=== PATIENT | male | born 1960 | race Caucasian/White ===

== ENCOUNTER 2021-01-12 05:56 | Emergency (ER) | payer SELFPAY ==
[2021-01-12] MEDS ORDERED: CYCLOBENZAPRINE5 MG PO (09:03)
[2021-01-12] MEDS ORDERED: MOBIC15 MG PO (09:03)
== END 2021-01-12 09:20 | disposition home or self-care (01) ==
LOC: ER1 05:56
DX: M25.512 Pain in left shoulder (principal); E11.9 Type 2 diabetes mellitus without complications; I10 Essential (primary) hypertension; K21.9 Gastro-esophageal reflux disease without esophagitis; J44.9 Chronic obstructive pulmonary disease, unspecified; F17.200 Nicotine dependence, unspecified, uncomplicated; Z88.5 Allergy status to narcotic agent; Z79.4 Long term (current) use of insulin; Z79.899 Other long term (current) drug therapy
CPT/HCPCS: 73030; 99283

== ENCOUNTER → 2021-09-28 | Outpatient (CLI) | payer MEDICAID ==
[~2021-09-28] MED LIST: CLEOCIN HCL300 MG PO; CYCLOBENZAPRINE5 MG PO; MOBIC15 MG PO
[2021-09-28 11:59] LABS: BUN/CREATININE RATIO 16 (0-10)
[2021-09-29 10:18] LABS: CREATININE, URINE 34.2 mg/dL (Not Estab.)
== END ==
LOC: LAB 10:38
PROVIDERS: Family Medicine
DX: E11.40 Type 2 diabetes mellitus with diabetic neuropathy, unspecified (principal); R39.12 Poor urinary stream
CPT/HCPCS: 36415; 80053; 80061; 82043; 82570; 83036; 84153; 84443

== ENCOUNTER 2021-10-02 17:09 | Inpatient (IN) | payer MEDICARE, MEDICAID ==
[~2021-10-02] VITALS: Ht 188 cm; Wt 101.6 kg
[2021-10-02 18:30] LABS: HEMOGLOBIN 13.2 gm/dl (14.0-17.5); RED BLOOD COUNT 4.11 M/UL (4.20-5.50); WHITE BLOOD COUNT 19.3 K/UL (4.5-11.0)
[2021-10-02 18:45] LABS: BUN/CREATININE RATIO 13 (0-10)
[2021-10-03 03:37] LABS: HEMOGLOBIN 12.2 gm/dl (14.0-17.5); RED BLOOD COUNT 3.89 M/UL (4.20-5.50); WHITE BLOOD COUNT 15.5 K/UL (4.5-11.0)
[2021-10-03 04:01] LABS: BUN/CREATININE RATIO 13 (0-10)
[2021-10-03] MEDS ORDERED: CEPHALEXIN500 MG PO (09:45)
[2021-10-03] MEDS ORDERED: METOPROLOL TART25 MG PO (09:45)
[2021-10-03] MEDS ORDERED: JARDIANCE25 MG PO (09:46)
[2021-10-03] MEDS ORDERED: CLOPIDOGREL75 MG PO (09:46)
[2021-10-03] MEDS ORDERED: OMEPRAZOLE40 MG PO (09:46)
[2021-10-03] MEDS ORDERED: ATORVASTATIN CA80 MG PO (09:46)
[2021-10-03] MEDS ORDERED: FLOMAX 0.4 MG0.4 MG PO (09:46)
[2021-10-03] MEDS ORDERED: BASAGLAR K100 UNIT/1 SQ (09:47)
[2021-10-03] MEDS ORDERED: ASPIRIN EC81 MG PO (09:47)
[2021-10-03] MEDS ORDERED: METFORMIN HCL500 M2 PO (09:47)
[2021-10-03] MEDS ORDERED: LISINOPRIL-HCT1 EACH PO (09:48)
[2021-10-04 04:15] LABS: HEMOGLOBIN 12.5 gm/dl (14.0-17.5); RED BLOOD COUNT 4.05 M/UL (4.20-5.50); WHITE BLOOD COUNT 13.8 K/UL (4.5-11.0)
[2021-10-04 04:43] LABS: BUN/CREATININE RATIO 18 (0-10)
[2021-10-05 03:33] LABS: HEMOGLOBIN 12.9 gm/dl (14.0-17.5); RED BLOOD COUNT 4.15 M/UL (4.20-5.50); WHITE BLOOD COUNT 13.3 K/UL (4.5-11.0)
[2021-10-05 04:43] LABS: BUN/CREATININE RATIO 20 (0-10)
--- NOTE | 2021-10-05 19:06 | NUR ---
1900- PT STATES HE IS LEAVING AMA, NURSE ATTEMPTED TO CALL . PT STATES HE DOES NOT WANT TO TALK TO ANYONE THAT HE IS LEAIVNG. NOTFIED CONSULTING NURSE.
== END 2021-10-05 19:17 | disposition left against medical advice (07) | DRG 872 ==
LOC: ER1 17:09 → CDU 19:05 → MED SURG 4 19:05
PROVIDERS: Physician Assistant Medical; ADMIT Internal Medicine
DX: A41.9 Sepsis, unspecified organism (principal); L03.116 Cellulitis of left lower limb; Z20.822 Contact with and (suspected) exposure to COVID-19; L03.115 Cellulitis of right lower limb; E87.1 Hypo-osmolality and hyponatremia; E11.52 Type 2 diabetes mellitus with diabetic peripheral angiopathy with gangrene; E11.628 Type 2 diabetes mellitus with other skin complications; E11.621 Type 2 diabetes mellitus with foot ulcer; D50.9 Iron deficiency anemia, unspecified; E11.42 Type 2 diabetes mellitus with diabetic polyneuropathy; E87.6 Hypokalemia; Z98.890 Other specified postprocedural states; Z90.49 Acquired absence of other specified parts of digestive tract
CPT/HCPCS: 36415; 73630; 73718; 80048; 80053; 80202; 81001; 82550; 82962; 83540; 83550; 83605; 83735; 83880; 84100; 85025; 85027; 85652; 86140; 87040; 87070; 87077; 87186; 87205; 93925; 96365; 96366; 96368; 96375; 99285; J1650; J2185; J2270; J2405; J3370; J7030; J7070; U0002

== ENCOUNTER 2021-12-05 14:08 | Emergency (ER) | payer SELFPAY ==
[~2021-12-05 14:08] MED LIST changes: +ASPIRIN EC81 MG PO; +ATORVASTATIN CA80 MG PO; +BASAGLAR K100 UNIT/1 SQ; +CEPHALEXIN500 MG PO; +CLOPIDOGREL75 MG PO; +FLOMAX 0.4 MG0.4 MG PO; +JARDIANCE25 MG PO; +LISINOPRIL-HCT1 EACH PO; +METFORMIN HCL500 M2 PO; +METOPROLOL TART25 MG PO; +OMEPRAZOLE40 MG PO
[2021-12-05] MEDS ORDERED: HYDROCODON-ACE1 EAC4 PO (16:18)
== END 2021-12-05 16:30 | disposition home or self-care (01) ==
LOC: ER1 14:08
DX: S52.124A Nondisplaced fracture of head of right radius, initial encounter for closed fracture (principal); F17.200 Nicotine dependence, unspecified, uncomplicated; W01.0XXA Fall on same level from slipping, tripping and stumbling without subsequent striking against object, initial encounter
CPT/HCPCS: 29105; 73080; 99283

== ENCOUNTER 2022-01-23 09:18 | Emergency (ER) | payer MEDICAID ==
[~2022-01-23 09:18] MED LIST changes: +HYDROCODON-ACE1 EAC4 PO
[2022-01-23 09:56] LABS: HEMOGLOBIN 14.5 gm/dl (14.0-17.5); RED BLOOD COUNT 4.61 M/UL (4.20-5.50); WHITE BLOOD COUNT 11.7 K/UL (4.5-11.0)
[2022-01-23 10:19] LABS: BUN/CREATININE RATIO 15 (0-10)
[2022-01-23] MEDS ORDERED: CYCLOBENZAPRINE10 MG PO (13:07)
== END 2022-01-23 13:10 | disposition home or self-care (01) ==
LOC: ER1 09:18
PROVIDERS: Physician Assistant
DX: M89.9 Disorder of bone, unspecified (principal); M62.838 Other muscle spasm; I25.10 Atherosclerotic heart disease of native coronary artery without angina pectoris; F17.210 Nicotine dependence, cigarettes, uncomplicated; Z88.8 Allergy status to other drugs, medicaments and biological substances
CPT/HCPCS: 71045; 73030; 73060; 80053; 82550; 82553; 84484; 85025; 93005; 96372; 99284